=== PATIENT | male | born 1945 | race African-American/Black ===

== ENCOUNTER 2018-04-05 03:49 | Inpatient (IN) | payer MEDICARE, OTHER ==
[~2018-04-05] VITALS: Ht 182.9 cm; Wt 90.3 kg
[~2018-04-05 03:49] MED LIST: GLIPIZIDE; METOPROLOL; PLAVIX; THIAMINE
[2018-04-05] MEDS ORDERED: MORPHINE SULFATE 4 MG/ML CPJ (NOT FOR IM USE) IV ONE (05:30)
[2018-04-05 05:36] LABS: BASOPHILS % 0.6 % (0.0-2.0); EOSINOPHILS % 0.1 % (0.0-5.0); HEMATOCRIT. 48.5 % (42.0-52.0); HEMOGLOBIN. 15.6 g/dL (14.0-18.0); MEAN CORPUSCULAR HEMOGLOBIN 30.4 pg (28.0-32.0); MEAN CORPUSCULAR VOLUME 94.1 fL (80.0-94.0); MEAN PLATELET VOLUME 9.2 fl (7.4-10.4); MONOCYTES % 10.8 % (2.0-8.0); NEUTROPHILS % 74.5 % (40.0-76.0); PLATELET 284 x1000/uL (130-400); RED BLOOD CELL COUNT 5.15 mill/uL (4.7-6.1); RED CELL DISTRIBUTION WIDTH 14.4 % (11.6-14.6)
[2018-04-05 05:41] LABS: CLARITY URINE CLEAR (CLEAR); COLOR URINE DARK YELLOW (YELLOW); KETONES URINE TRACE (NEGATIVE); LEUKOCYTE ESTERASE URINE NEGATIVE (NEGATIVE); NITRITE URINE NEGATIVE (NEGATIVE); OCCULT BLOOD URINE 2+ (NEGATIVE); PROTEIN URINE 4+ (NEGATIVE); SPECIFIC GRAVITY URINE 1.022 (1.005-1.030); UROBILINOGEN URINE 0.2 E.U./dL (0.2-1.0)
[2018-04-05 05:49] LABS: CHLORIDE 104 mEq/L (98-107)
[2018-04-05 05:51] LABS: INR 1.1; PROTHROMBIN TIME 11.3 sec (9.1-11.1)
[2018-04-05] MEDS ORDERED: KETOROLAC 15MG/ML VIAL IV ONE (08:15)
[2018-04-05] MEDS ORDERED: AMLODIPINE 5MG TABLET PO ONE (08:15)
[2018-04-05] MEDS ORDERED: FUROSEMIDE 20MG/2ML VIAL IVP ONE (08:45)
[2018-04-05] MEDS ORDERED: ASPIRIN 325MG TABLET PO ONE (08:45)
[2018-04-05] MEDS ORDERED: FLUT1DIS3 INH (10:18)
[2018-04-05] MEDS ORDERED: ALBU18HF2 IH (10:18)
[2018-04-05] MEDS ORDERED: MAGN1TAB PO (10:18)
[2018-04-05] MEDS ORDERED: ONDANSETRON HCL 4MG/2ML INJ IV PRN (10:30)
[2018-04-05] MEDS ORDERED: IPRATROPIUM/ALBUTEROL 0.5-3(2.5)MG/3ML NEB INH PRN (10:30)
[2018-04-05] MEDS ORDERED: ACETAMINOPHEN 325MG TABLET PO PRN (10:30)
[2018-04-05] MEDS ORDERED: MAGNESIUM/ALUMINUM HYDROXIDE/SIMETHICONE 30ML UDC PO PRN (10:30)
[2018-04-05] MEDS ORDERED: HYDRALAZINE 20MG/ML VIAL IV PRN (10:30)
[2018-04-05] MEDS ORDERED: CLONIDINE 0.1MG TABLET PO PRN (10:30)
[2018-04-05 10:33] VITALS: BP 168/115
[2018-04-05] MEDS ORDERED: CLONIDINE 0.2MG TABLET PO PRN (10:48)
[2018-04-05] MEDS: FAMOTIDINE 20MG TABLET PO SCH (11:21)
[2018-04-05] MEDS: FUROSEMIDE 40MG/4ML VIAL IVP SCH (11:21)
[2018-04-05] MEDS: LOSARTAN POTASSIUM 50 MG TABLET PO SCH ×2 (11:21→20:50)
[2018-04-05] MEDS: MORPHINE SULFATE 4 MG/ML CPJ (NOT FOR IM USE) IV PRN ×2 (11:25→18:25)
[2018-04-05 12:00] VITALS: BP 158/74
[2018-04-05] MEDS: SODIUM CHLORIDE 0.9% INJ 3ML FLUSH IVF SCH ×2 (14:22→20:51)
[2018-04-05 16:00] VITALS: BP 168/113
[2018-04-05] MEDS: CARVEDILOL 12.5MG TABLET PO SCH (20:51)
[2018-04-05] MEDS ORDERED: FAMOTIDINE 20MG TABLET PO SCH (21:00)
[2018-04-05] MEDS ORDERED: DEXTROSE 50% WATER 50ML SYRINGE IV PRN (23:00)
[2018-04-06] VITALS: BP 155/99
[2018-04-06] MEDS: MORPHINE SULFATE 4 MG/ML CPJ (NOT FOR IM USE) IV PRN (00:03)
[2018-04-06] MEDS ORDERED: GLIP10TA10 MT (00:22)
[2018-04-06] MEDS ORDERED: CLOP75TA33 MT (00:22)
[2018-04-06] MEDS ORDERED: [UNRECOGNIZED DRUG - CODE] MC (00:22)
[2018-04-06] MEDS ORDERED: ASPI-1158 MT (00:22)
[2018-04-06] MEDS ORDERED: ATOR-2 MT (00:22)
[2018-04-06] MEDS ORDERED: CHOL100044 MT (00:22)
[2018-04-06] MEDS ORDERED: FURO40TA5 MT (00:22)
[2018-04-06] MEDS ORDERED: CARV25TA47 MT (00:22)
[2018-04-06] MEDS ORDERED: SPIR25TA6 MT (00:22)
[2018-04-06] MEDS ORDERED: MAGN400C MT (00:22)
[2018-04-06] MEDS ORDERED: LISI-604 MT (00:22)
[2018-04-06] MEDS ORDERED: ACET-2853 MT (00:22)
[2018-04-06] MEDS ORDERED: HYDR-459 MT (00:22)
[2018-04-06] MEDS ORDERED: MULT-1146 MT (00:22)
[2018-04-06 04:00] VITALS: BP 139/76
[2018-04-06] MEDS: INSULIN LISPRO 100 UNITS/ML SUBCUT SCH ×4 (05:37→21:00)
[2018-04-06] MEDS: BLOOD SUGAR DIAGNOSTIC STRIP TEST SCH ×4 (05:37→21:00)
[2018-04-06] MEDS: SODIUM CHLORIDE 0.9% INJ 3ML FLUSH IVF SCH ×3 (05:37→22:34)
[2018-04-06 06:32] LABS: BASOPHILS % 0.4 % (0.0-2.0); EOSINOPHILS % 0.2 % (0.0-5.0); HEMATOCRIT. 46.9 % (42.0-52.0); HEMOGLOBIN. 15.3 g/dL (14.0-18.0); LYMPHOCYTES % 8.7 % (20.0-50.0); MEAN CORPUSCULAR HEMOGLOBIN 30.6 pg (28.0-32.0); MEAN CORPUSCULAR VOLUME 93.9 fL (80.0-94.0); MEAN PLATELET VOLUME 8.8 fl (7.4-10.4); MONOCYTES % 13.6 % (2.0-8.0); NEUTROPHILS % 77.1 % (40.0-76.0); PLATELET 222 x1000/uL (130-400); RED CELL DISTRIBUTION WIDTH 14.1 % (11.6-14.6)
[2018-04-06 08:21] VITALS: BP 139/86
[2018-04-06] MEDS: FUROSEMIDE 40MG/4ML VIAL IVP SCH (08:52)
[2018-04-06] MEDS: LOSARTAN POTASSIUM 50 MG TABLET PO SCH ×2 (08:53→20:35)
[2018-04-06] MEDS: CARVEDILOL 12.5MG TABLET PO SCH ×2 (08:53→20:35)
[2018-04-06] MEDS: ASPIRIN 81MG EC TABLET PO SCH (08:54)
[2018-04-06] MEDS: FAMOTIDINE 20MG TABLET PO SCH (08:54)
[2018-04-06] MEDS: CLOPIDOGREL 75MG TABLET PO SCH (08:54)
[2018-04-06] MEDS: LISINOPRIL 20MG TABLET PO SCH (09:03)
[2018-04-06] MEDS ORDERED: PNEUMOCOCCAL 23-VAL P-SAC VAC 0.5 ML IM ONE (10:00)
[2018-04-06] MEDS ORDERED: INFLUENZA VIRUS VACCINE(AFLURIA) 0.5ML SYR IM ONE (10:00)
[2018-04-06 12:00] VITALS: BP 136/84
[2018-04-06 16:00] VITALS: BP 124/75
[2018-04-06 20:00] VITALS: BP 108/65
[2018-04-06] MEDS ORDERED: ATORVASTATIN CALCIUM 40MG TABLET PO SCH (21:00)
[2018-04-07] VITALS: BP 108/64
[2018-04-07 04:00] VITALS: BP 106/57
[2018-04-07] MEDS: SODIUM CHLORIDE 0.9% INJ 3ML FLUSH IVF SCH (06:10)
[2018-04-07] MEDS: BLOOD SUGAR DIAGNOSTIC STRIP TEST SCH ×2 (06:10→11:41)
[2018-04-07] MEDS: INSULIN LISPRO 100 UNITS/ML SUBCUT SCH ×2 (06:10→11:41)
[2018-04-07 07:53] VITALS: BP 116/79
[2018-04-07] MEDS: CLOPIDOGREL 75MG TABLET PO SCH (08:22)
[2018-04-07] MEDS: FAMOTIDINE 20MG TABLET PO SCH (08:22)
[2018-04-07] MEDS: LISINOPRIL 20MG TABLET PO SCH (08:22)
[2018-04-07] MEDS: LOSARTAN POTASSIUM 50 MG TABLET PO SCH (08:22)
[2018-04-07] MEDS: FUROSEMIDE 40MG/4ML VIAL IVP SCH (08:22)
[2018-04-07] MEDS: ASPIRIN 81MG EC TABLET PO SCH (08:22)
[2018-04-07] MEDS: CARVEDILOL 12.5MG TABLET PO SCH (08:23)
[2018-04-07 12:00] VITALS: BP 100/56
[2018-04-07 16:00] VITALS: BP 99/59
[2018-04-07 16:22] VITALS: BP 99/59
== END 2018-04-07 18:10 | disposition home or self-care (01) | DRG 562 ==
LOC: ER 03:49 → EDBD 03:49 → ENRESERV 07:06 → 8WST 08:38 → EDBEDREQTM 08:42 → EDBEDREQ 08:42
PROVIDERS: ADMIT Internal Medicine; ATTEND Internal Medicine
DX: S39.011A Strain of muscle, fascia and tendon of abdomen, initial encounter (principal); E43 Unspecified severe protein-calorie malnutrition; I13.0 Hypertensive heart and chronic kidney disease with heart failure and stage 1 through stage 4 chronic kidney disease, or unspecified chronic kidney disease; I50.22 Chronic systolic (congestive) heart failure; J44.9 Chronic obstructive pulmonary disease, unspecified; N18.9 Chronic kidney disease, unspecified; E78.00 Pure hypercholesterolemia, unspecified; E11.22 Type 2 diabetes mellitus with diabetic chronic kidney disease; E78.5 Hyperlipidemia, unspecified; F10.10 Alcohol abuse, uncomplicated; X58.XXXA Exposure to other specified factors, initial encounter; I25.10 Atherosclerotic heart disease of native coronary artery without angina pectoris; Z82.49 Family history of ischemic heart disease and other diseases of the circulatory system; Z83.3 Family history of diabetes mellitus; Z80.9 Family history of malignant neoplasm, unspecified; Z85.818 Personal history of malignant neoplasm of other sites of lip, oral cavity, and pharynx; Z95.5 Presence of coronary angioplasty implant and graft; Z87.891 Personal history of nicotine dependence; Z79.82 Long term (current) use of aspirin; Z79.899 Other long term (current) drug therapy; Y93.89 Activity, other specified; Y92.89 Other specified places as the place of occurrence of the external cause; Y99.8 Other external cause status; Z68.27 Body mass index [BMI] 27.0-27.9, adult
CPT/HCPCS: 36415; 71045; 74176; 80048; 82962; 83036; 83605; 83735; 84484; 90686; 90732; 93005; 93306; 93970; 96374; 96375; 99285; J0360; J1815; J1885; J1940; J2270

== ENCOUNTER 2023-08-12 12:15 | Inpatient (IN) | payer MEDICARE, OTHER ==
[~2023-08-12] VITALS: Ht 175.3 cm; Wt 73.3 kg
[~2023-08-12 12:15] MED LIST changes: +ACET-3163 MT; +ALBU18HF2 IH; +AMLO-337 MT; +ASPI-1406 MT; +CARV25TA47 MT; +CHOL100044 MT; +CLOP75TA33 MT; +FLUT1DIS3 INH; +FURO40TA5 MT; +GLIP10TA10 MT; -GLIPIZIDE; +HYDR-459 MT; +MAGN1TAB PO; +MAGN400C MT; -METOPROLOL; +MULT-1146 MT; -PLAVIX; +SPIR25TA6 MT; -THIAMINE; +[UNRECOGNIZED DRUG - CODE] MC
[2023-08-12] MEDS ORDERED: AMLODIPINE 10MG TABLET PO ONE (12:45)
[2023-08-12 13:39] LABS: HEMATOCRIT. 41.7 % (42.0-52.0); HEMOGLOBIN. 13.3 g/dL (14.0-18.0); MEAN CORPUSCULAR HEMOGLOBIN 31.3 pg (28.0-32.0); MEAN PLATELET VOLUME 8.6 fl (7.4-10.4); PLATELET 177 x1000/uL (130-400); RED BLOOD CELL COUNT 4.26 mill/uL (4.7-6.1)
[2023-08-12 13:40] LABS: DIFFERENTIAL COMMENT 1
[2023-08-12 13:53] LABS: INR 1.4; PARTIAL THROMBOPLASTIN TIME 28.9 sec (23.4-31.0); PROTHROMBIN TIME 15.4 sec (9.6-11.0)
[2023-08-12 14:00] LABS: ALANINE AMINOTRANSFERASE 126 IU/L (10-49); ALBUMIN 3.2 g/dL (3.2-4.8); ASPARTATE AMINOTRANSFERASE 290 IU/L (<34); BILIRUBIN TOTAL 1.5 mg/dL (0.1-1.0); CALCIUM 8.7 mg/dL (8.7-10.4); CARBON DIOXIDE 17 mEq/L (21-32); CHLORIDE 109 mEq/L (98-107); GLUCOSE 79 mg/dL (70-105); POTASSIUM 4.4 mEq/L (3.5-5.1); PROTEIN TOTAL 6.8 g/dL (6.0-8.3); SODIUM 138 mEq/L (136-145); TROPONIN I HIGH SENSITIVITY 42 ng/L (3.0-53); UREA NITROGEN BLOOD 52 mg/dL (9-23)
[2023-08-12 14:03] LABS: CREATININE 4.4 mg/dL (0.6-1.3)
[2023-08-12] MEDS: FUROSEMIDE 40MG/4ML VIAL IV ONE (14:03)
[2023-08-12] MEDS: ASPIRIN 81MG TABLET PO ONE (14:03)
[2023-08-12 14:06] LABS: PLATELET ESTIMATE NORMAL
[2023-08-12] MEDS: NITROGLYCERIN OINT 1GM/INCH UDPKT TD ONE (14:09)
[2023-08-12] MEDS: AMLODIPINE 5MG TABLET PO NR (14:09)
[2023-08-12] MEDS ORDERED: ONDANSETRON HCL 4MG/2ML INJ IV PRN (18:00)
[2023-08-12] MEDS: FUROSEMIDE 40MG/4ML VIAL IVP SCH (20:23)
[2023-08-12] MEDS: ENOXAPARIN 30MG/0.3ML SYR SUBCUT SCH (20:25)
[2023-08-12 20:28] VITALS: PULSE 80; RESP 20; O2SAT 98
[2023-08-12] MEDS: IPRATROPIUM/ALBUTEROL 0.5-3(2.5)MG/3ML NEB HHN PRN (20:28)
[2023-08-12] MEDS: FAMOTIDINE 20MG TABLET PO SCH (21:27)
[2023-08-12] MEDS: METOPROLOL TARTRATE 25MG TABLET PO SCH (21:27)
[2023-08-12 21:36] LABS: LACTIC ACID 3.2 mmol/L (0.4-2.0)
[2023-08-12 21:37] LABS: PHOSPHORUS 4.5 mg/dL (2.5-4.9)
[2023-08-12] MEDS ORDERED: INFLUENZA VACCINE 05/PF 0.5 ML SYRINGE IM ONE (23:00)
[2023-08-13] VITALS (9 sets, daily range): BP systolic 92–148; BP diastolic 60–82; PULSE 63–98; RESP 18–21; TEMP 96.9–98.7
[2023-08-13] MEDS: ZOLPIDEM TARTRATE 5MG TABLET PO NR (00:17)
[2023-08-13 01:58] LABS: CREATINE KINASE MB FRACTION 5.6 ng/mL (0.5-3.6)
[2023-08-13 06:56] LABS: HEMATOCRIT. 39.6 % (42.0-52.0); HEMOGLOBIN. 12.8 g/dL (14.0-18.0); MEAN CORPUSCULAR HEMOGLOBIN 31.5 pg (28.0-32.0); MEAN CORPUSCULAR HGB CONC 32.4 g/dL (31.0-37.0); MEAN PLATELET VOLUME 8.4 fl (7.4-10.4); PLATELET 170 x1000/uL (130-400); RED BLOOD CELL COUNT 4.08 mill/uL (4.7-6.1); RED CELL DISTRIBUTION WIDTH 16.8 % (11.6-14.6); WHITE BLOOD COUNT 5.2 x1000/uL (4.5-11.0)
[2023-08-13 07:04] LABS: ALANINE AMINOTRANSFERASE 134 IU/L (10-49); ALBUMIN 3.2 g/dL (3.2-4.8); ASPARTATE AMINOTRANSFERASE 231 IU/L (<34); BILIRUBIN TOTAL 0.9 mg/dL (0.1-1.0); CALCIUM 8.4 mg/dL (8.7-10.4); CARBON DIOXIDE 19 mEq/L (21-32); CHLORIDE 107 mEq/L (98-107); CHOLESTEROL 184 mg/dL (<200); CREATININE 4.5 mg/dL (0.6-1.3); GLUCOSE 148 mg/dL (70-105); HDL CHOLESTEROL 52 mg/dL (>55); LDL CHOLESTEROL 103 mg/dL (5-100); POTASSIUM 4.5 mEq/L (3.5-5.1); PROTEIN TOTAL 6.7 g/dL (6.0-8.3); SODIUM 139 mEq/L (136-145); T4 FREE 0.95 ng/dL (0.89-1.76); THYROID STIMULATING HORMONE 10.22 uIU/mL (0.55-4.78); TRIGLYCERIDE 110 mg/dL (0-150); UREA NITROGEN BLOOD 56 mg/dL (9-23)
[2023-08-13 07:28] LABS: DIFFERENTIAL COMMENT 1
[2023-08-13 07:30] LABS: CREATINE KINASE MB FRACTION 5.2 ng/mL (0.5-3.6)
[2023-08-13] MEDS: CHOLECALCIFEROL (D3) 1000 UNIT TABLET PO SCH (08:56)
[2023-08-13] MEDS: ASPIRIN 81MG TABLET PO SCH (08:56)
[2023-08-13] MEDS: AMLODIPINE 5MG TABLET PO SCH (08:57)
[2023-08-13 15:09] LABS: CLARITY URINE CLOUDY (CLEAR); COLOR URINE DARK YELLOW (YELLOW); GLUCOSE URINE NEGATIVE (NEGATIVE); KETONES URINE NEGATIVE (NEGATIVE); LEUKOCYTE ESTERASE URINE TRACE (NEGATIVE); NITRITE URINE NEGATIVE (NEGATIVE); OCCULT BLOOD URINE NEGATIVE (NEGATIVE); PROTEIN URINE 3+ (NEGATIVE); SPECIFIC GRAVITY URINE 1.016 (1.005-1.030)
[2023-08-13 15:38] LABS: BACTERIA URINE 2+; SQUAMOUS EPITHELIAL CELL URINE FEW /lpf (RARE/1+)
[2023-08-13 15:39] LABS: RBC URINE NONE SEEN /hpf (0-2); WBC URINE 0-2 /hpf (0-2)
[2023-08-13 22:36] LABS: PLATELET ESTIMATE NORMAL
[2023-08-13 22:37] LABS: ANISOCYTOSIS 1+
[2023-08-14] VITALS (7 sets, daily range): BP systolic 101–136; BP diastolic 63–84; PULSE 60–68; RESP 17–20; TEMP 96.1–98.7
[2023-08-14] MEDS: ACETAMINOPHEN 325MG TABLET PO PRN (00:18)
[2023-08-14 07:05] LABS: HEMATOCRIT 39.4 % (42.0-52.0); HEMOGLOBIN 12.6 g/dL (14.0-18.0); MEAN CORPUSCULAR HEMOGLOBIN 31.2 pg (28.0-32.0); MEAN CORPUSCULAR VOLUME 97.4 fL (80.0-94.0); PLATELET 165 x1000/uL (130-400); RED BLOOD CELL COUNT 4.04 mill/uL (4.7-6.1); RED CELL DISTRIBUTION WIDTH 16.7 % (11.6-14.6); WHITE BLOOD COUNT 6.1 x1000/uL (4.5-11.0)
[2023-08-14 08:15] LABS: LACTIC ACID 3.4 mmol/L (0.4-2.0)
[2023-08-14 08:45] LABS: CALCIUM 8.4 mg/dL (8.7-10.4); CARBON DIOXIDE 16 mEq/L (21-32); CHLORIDE 108 mEq/L (98-107); CREATININE 4.8 mg/dL (0.6-1.3); GLUCOSE 101 mg/dL (70-105); PHOSPHORUS 5.5 mg/dL (2.5-4.9); POTASSIUM 5.1 mEq/L (3.5-5.1); SODIUM 138 mEq/L (136-145); UREA NITROGEN BLOOD 61 mg/dL (9-23)
[2023-08-14] MEDS ORDERED: LACTATED RINGERS 1,000 ML IV SCH (11:00)
[2023-08-14] MEDS: SEVELAMER CARBONATE 800 MG TABLET PO SCH (13:14)
[2023-08-14] MEDS: LEVOTHYROXINE SODIUM 25MCG TABLET PO SCH (13:14)
[2023-08-14] MEDS: CEFTRIAXONE 1GM/50ML 50 ML IV SCH (18:19)
[2023-08-15 04:00] VITALS: BP 128/70; PULSE 66; RESP 18; TEMP 97.6
[2023-08-15 07:02] LABS: HEMATOCRIT 38.4 % (42.0-52.0); HEMOGLOBIN 12.5 g/dL (14.0-18.0); MEAN CORPUSCULAR HEMOGLOBIN 31.5 pg (28.0-32.0); MEAN CORPUSCULAR HGB CONC 32.4 g/dL (31.0-37.0); MEAN CORPUSCULAR VOLUME 97.1 fL (80.0-94.0); PLATELET 167 x1000/uL (130-400); RED BLOOD CELL COUNT 3.96 mill/uL (4.7-6.1); RED CELL DISTRIBUTION WIDTH 16.6 % (11.6-14.6)
[2023-08-15 07:06] LABS: LACTIC ACID 2.7 mmol/L (0.4-2.0)
[2023-08-15 07:08] LABS: CALCIUM 8.6 mg/dL (8.7-10.4); CARBON DIOXIDE 17 mEq/L (21-32); CHLORIDE 108 mEq/L (98-107); CREATININE 4.9 mg/dL (0.6-1.3); GLUCOSE 85 mg/dL (70-105); PHOSPHORUS 4.8 mg/dL (2.5-4.9); POTASSIUM 4.8 mEq/L (3.5-5.1); SODIUM 138 mEq/L (136-145); UREA NITROGEN BLOOD 63 mg/dL (9-23)
[2023-08-15 08:00] VITALS: BP 129/86; PULSE 67; RESP 18; TEMP 97.1
[2023-08-15 12:00] VITALS: BP 120/86; PULSE 62; RESP 16; TEMP 97.6
[2023-08-15] MEDS ORDERED: LACTATED RINGERS 1,000 ML IV SCH (13:15)
[2023-08-15 16:00] VITALS: BP 119/66; PULSE 58; RESP 20; TEMP 98.7
[2023-08-15 20:00] VITALS: BP 118/65; PULSE 57; RESP 18; TEMP 95.7
[2023-08-15] MEDS: CARVEDILOL 3.125 MG TABLET PO SCH (21:00)
[2023-08-15] MEDS: SODIUM CHLORIDE 0.9% 1,000 ML IV SCH (21:34)
[2023-08-16] VITALS: BP 101/70; PULSE 64; RESP 20; TEMP 96.4
[2023-08-16 04:00] VITALS: BP 90/63; PULSE 64; RESP 19; TEMP 97.5
[2023-08-16 06:13] LABS: LACTIC ACID 2.7 mmol/L (0.4-2.0)
[2023-08-16 06:14] LABS: HEMOGLOBIN. 9.7 g/dL (14.0-18.0); MEAN CORPUSCULAR HEMOGLOBIN 31.2 pg (28.0-32.0); MEAN CORPUSCULAR HGB CONC 32.2 g/dL (31.0-37.0); MEAN CORPUSCULAR VOLUME 96.9 fL (80.0-94.0); MEAN PLATELET VOLUME 8.6 fl (7.4-10.4); PLATELET 138 x1000/uL (130-400); RED CELL DISTRIBUTION WIDTH 16.5 % (11.6-14.6); WHITE BLOOD COUNT 4.9 x1000/uL (4.5-11.0)
[2023-08-16 06:26] LABS: CALCIUM 6.5 mg/dL (8.7-10.4); CARBON DIOXIDE 12 mEq/L (21-32); CHLORIDE 116 mEq/L (98-107); CREATININE 3.8 mg/dL (0.6-1.3); GLUCOSE 89 mg/dL (70-105); PHOSPHORUS 3.6 mg/dL (2.5-4.9); POTASSIUM 3.9 mEq/L (3.5-5.1); SODIUM 142 mEq/L (136-145); UREA NITROGEN BLOOD 49 mg/dL (9-23); URIC ACID 9.9 mg/dL (3.7-9.2)
[2023-08-16 06:32] LABS: DIFFERENTIAL COMMENT 1
[2023-08-16 08:00] VITALS: BP 150/76; PULSE 58; RESP 18; TEMP 97.5
[2023-08-16] MEDS: SODIUM BICARBONATE 650 MG TABLET PO SCH (08:31)
[2023-08-16] MEDS: MAGNESIUM GLUCONATE 500MG TABLET PO SCH (09:53)
[2023-08-16 12:00] VITALS: BP 110/54; PULSE 59; RESP 18; TEMP 97
[2023-08-16 13:25] LABS: ANISOCYTOSIS 1+; PLATELET ESTIMATE NORMAL
[2023-08-16 16:00] VITALS: BP 135/78; PULSE 60; RESP 20; TEMP 96.9
[2023-08-16 20:00] VITALS: BP 135/75; PULSE 61; RESP 19; TEMP 97
[2023-08-17] VITALS: BP 115/74; PULSE 63; RESP 18; TEMP 96.7
[2023-08-17 04:00] VITALS: BP 104/53; PULSE 58; RESP 19; TEMP 95.2
[2023-08-17 06:58] LABS: HEMATOCRIT 33.2 % (42.0-52.0); HEMOGLOBIN 10.9 g/dL (14.0-18.0); MEAN CORPUSCULAR HGB CONC 32.8 g/dL (31.0-37.0); MEAN CORPUSCULAR VOLUME 94.5 fL (80.0-94.0); PLATELET 143 x1000/uL (130-400); RED BLOOD CELL COUNT 3.51 mill/uL (4.7-6.1); RED CELL DISTRIBUTION WIDTH 16.4 % (11.6-14.6); WHITE BLOOD COUNT 4.8 x1000/uL (4.5-11.0)
[2023-08-17 07:29] LABS: CALCIUM 8.4 mg/dL (8.7-10.4); CARBON DIOXIDE 16 mEq/L (21-32); CHLORIDE 108 mEq/L (98-107); GLUCOSE 96 mg/dL (70-105); PHOSPHORUS 4.6 mg/dL (2.5-4.9); POTASSIUM 5.5 mEq/L (3.5-5.1); SODIUM 137 mEq/L (136-145); UREA NITROGEN BLOOD 71 mg/dL (9-23)
[2023-08-17 07:30] LABS: CREATININE 5.1 mg/dL (0.6-1.3)
[2023-08-17 08:00] VITALS: BP 114/60; PULSE 57; RESP 20; TEMP 97.2
[2023-08-17 12:00] VITALS: BP 117/66; PULSE 57; RESP 20; TEMP 97.6
[2023-08-17] MEDS: SODIUM POLYSTYRENE SULFONATE 15 G/60 ML BOT PO NR (13:25)
[2023-08-17 16:00] VITALS: BP 114/57; PULSE 58; RESP 20; TEMP 97
[2023-08-17 20:00] VITALS: BP 120/73; PULSE 61; RESP 20; TEMP 95.6
[2023-08-18] VITALS (7 sets, daily range): BP systolic 118–131; BP diastolic 66–80; PULSE 60–108; RESP 16–20; TEMP 96.4–98.2
[2023-08-18 05:49] LABS: HEMATOCRIT 33.3 % (42.0-52.0); MEAN CORPUSCULAR HEMOGLOBIN 31.2 pg (28.0-32.0); MEAN CORPUSCULAR VOLUME 94.7 fL (80.0-94.0); PLATELET 162 x1000/uL (130-400); RED BLOOD CELL COUNT 3.52 mill/uL (4.7-6.1); RED CELL DISTRIBUTION WIDTH 16.1 % (11.6-14.6); WHITE BLOOD COUNT 4.5 x1000/uL (4.5-11.0)
[2023-08-18 06:09] LABS: CALCIUM 8.6 mg/dL (8.7-10.4); CARBON DIOXIDE 18 mEq/L (21-32); CHLORIDE 108 mEq/L (98-107); GLUCOSE 87 mg/dL (70-105); PHOSPHORUS 4.5 mg/dL (2.5-4.9); POTASSIUM 4.4 mEq/L (3.5-5.1); SODIUM 140 mEq/L (136-145); UREA NITROGEN BLOOD 78 mg/dL (9-23)
[2023-08-18 06:16] LABS: CREATININE 5.2 mg/dL (0.6-1.3)
[2023-08-18] MEDS: FUROSEMIDE 40MG/4ML VIAL IVP NR (14:01)
[2023-08-19] VITALS (15 sets, daily range): BP systolic 114–143; BP diastolic 59–91; PULSE 57–65; RESP 12–23; TEMP 96–97.2
[2023-08-19 06:44] LABS: HEMATOCRIT 34.1 % (42.0-52.0); HEMOGLOBIN 11.1 g/dL (14.0-18.0); MEAN CORPUSCULAR HGB CONC 32.7 g/dL (31.0-37.0); MEAN CORPUSCULAR VOLUME 94.8 fL (80.0-94.0); PLATELET 166 x1000/uL (130-400); RED CELL DISTRIBUTION WIDTH 16.2 % (11.6-14.6); WHITE BLOOD COUNT 4.4 x1000/uL (4.5-11.0)
[2023-08-19 07:20] LABS: CALCIUM 8.7 mg/dL (8.7-10.4); CARBON DIOXIDE 19 mEq/L (21-32); CHLORIDE 99 mEq/L (98-107); GLUCOSE 87 mg/dL (70-105); PHOSPHORUS 4.4 mg/dL (2.5-4.9); POTASSIUM 3.8 mEq/L (3.5-5.1); UREA NITROGEN BLOOD 75 mg/dL (9-23)
[2023-08-19 07:21] LABS: SODIUM 124 mEq/L (136-145)
[2023-08-19] MEDS: FUROSEMIDE 40MG/4ML VIAL IVP SCH (09:02)
[2023-08-19] MEDS ORDERED: FENTANYL CITRATE/PF 50MCG/ML 2ML VIAL IV ONE (12:45)
[2023-08-19] MEDS ORDERED: LIDOCAINE HCL 1% 10 MG/ML 10ML VIAL ONE (12:51)
[2023-08-19] MEDS ORDERED: LIDOCAINE HCL/EPINEPHRINE 1%-EPI 1:100,000 20 ML VIAL ONE (12:51)
[2023-08-19 12:54] LABS: HEPATITIS A AB IGM NEGATIVE (Negative); HEPATITIS B CORE AB IGM NEGATIVE (Negative); HEPATITIS B SURFACE ANTIGEN NEGATIVE (Negative); HEPATITIS C AB NON REACTIVE (Neg) (Negative)
[2023-08-19] MEDS ORDERED: CEFAZOLIN 1000MG PREMIX 50 ML IV NR (13:00)
[2023-08-19 16:58] LABS: INR 1.2
[2023-08-20] VITALS (16 sets, daily range): BP systolic 114–151; BP diastolic 51–89; PULSE 56–78; RESP 15–20; TEMP 95.7–98.8
[2023-08-20 06:29] LABS: HEMATOCRIT 32.7 % (42.0-52.0); HEMOGLOBIN 10.4 g/dL (14.0-18.0); MEAN CORPUSCULAR HEMOGLOBIN 30.6 pg (28.0-32.0); MEAN CORPUSCULAR HGB CONC 31.9 g/dL (31.0-37.0); MEAN CORPUSCULAR VOLUME 96.1 fL (80.0-94.0); PLATELET 158 x1000/uL (130-400); RED CELL DISTRIBUTION WIDTH 16.3 % (11.6-14.6)
[2023-08-20 07:07] LABS: CALCIUM 8.4 mg/dL (8.7-10.4); CARBON DIOXIDE 18 mEq/L (21-32); CHLORIDE 108 mEq/L (98-107); GLUCOSE 91 mg/dL (70-105); PHOSPHORUS 4.7 mg/dL (2.5-4.9); POTASSIUM 4.6 mEq/L (3.5-5.1); SODIUM 138 mEq/L (136-145); UREA NITROGEN BLOOD 65 mg/dL (9-23)
[2023-08-20 07:09] LABS: CREATININE 5.1 mg/dL (0.6-1.3)
[2023-08-21] VITALS (7 sets, daily range): BP systolic 125–148; BP diastolic 62–81; PULSE 56–68; RESP 16–20; TEMP 96.6–98.6; O2SAT 99
[2023-08-21 07:56] LABS: HEMOGLOBIN 10.3 g/dL (14.0-18.0); MEAN CORPUSCULAR HEMOGLOBIN 30.6 pg (28.0-32.0); MEAN CORPUSCULAR HGB CONC 32.4 g/dL (31.0-37.0); MEAN CORPUSCULAR VOLUME 94.4 fL (80.0-94.0); PLATELET 150 x1000/uL (130-400); RED BLOOD CELL COUNT 3.39 mill/uL (4.7-6.1); RED CELL DISTRIBUTION WIDTH 15.9 % (11.6-14.6); WHITE BLOOD COUNT 4.5 x1000/uL (4.5-11.0)
[2023-08-21 08:22] LABS: CARBON DIOXIDE 23 mEq/L (21-32); CHLORIDE 106 mEq/L (98-107); CREATININE 4.3 mg/dL (0.6-1.3); GLUCOSE 97 mg/dL (70-105); PHOSPHORUS 4.2 mg/dL (2.5-4.9); SODIUM 141 mEq/L (136-145); UREA NITROGEN BLOOD 60 mg/dL (9-23)
[2023-08-21] MEDS: CARVEDILOL 6.25 MG TABLET PO SCH (21:24)
[2023-08-21] MEDS: IPRATROPIUM/ALBUTEROL 0.5-3(2.5)MG/3ML NEB HHN PRN (23:44)
[2023-08-22] VITALS (7 sets, daily range): BP systolic 100–135; BP diastolic 52–76; PULSE 51–65; RESP 14–20; TEMP 97–98.3
[2023-08-22 08:41] LABS: HEMATOCRIT 32.2 % (42.0-52.0); HEMOGLOBIN 10.5 g/dL (14.0-18.0); MEAN CORPUSCULAR HEMOGLOBIN 31.1 pg (28.0-32.0); MEAN CORPUSCULAR HGB CONC 32.6 g/dL (31.0-37.0); MEAN CORPUSCULAR VOLUME 95.4 fL (80.0-94.0); PLATELET 152 x1000/uL (130-400); RED BLOOD CELL COUNT 3.38 mill/uL (4.7-6.1); RED CELL DISTRIBUTION WIDTH 16.1 % (11.6-14.6); WHITE BLOOD COUNT 4.2 x1000/uL (4.5-11.0)
[2023-08-22 09:09] LABS: CALCIUM 8.3 mg/dL (8.7-10.4); CARBON DIOXIDE 24 mEq/L (21-32); CHLORIDE 106 mEq/L (98-107); CREATININE 4.2 mg/dL (0.6-1.3); GLUCOSE 72 mg/dL (70-105); PHOSPHORUS 3.7 mg/dL (2.5-4.9); POTASSIUM 4.2 mEq/L (3.5-5.1); SODIUM 140 mEq/L (136-145); UREA NITROGEN BLOOD 64 mg/dL (9-23)
[2023-08-22] MEDS: LOSARTAN 25 MG TABLET PO SCH (09:15)
[2023-08-22 17:24] LABS: HEPATITIS A AB IGM NEGATIVE (Negative); HEPATITIS B CORE AB IGM NEGATIVE (Negative); HEPATITIS B SURFACE ANTIGEN NEGATIVE (Negative); HEPATITIS C AB NON REACTIVE (Neg) (Negative)
[2023-08-23] VITALS (7 sets, daily range): BP systolic 107–117; BP diastolic 44–67; PULSE 54–66; RESP 17–20; TEMP 97–97.8
[2023-08-24] VITALS (15 sets, daily range): BP systolic 99–141; BP diastolic 40–76; PULSE 58–70; RESP 18–20; TEMP 96.9–98.2
[2023-08-25] VITALS (7 sets, daily range): BP systolic 111–129; BP diastolic 54–82; PULSE 58–74; RESP 17–20; TEMP 97.5–98.1; O2SAT 97
[2023-08-25 09:40] LABS: HEMATOCRIT. 32.7 % (42.0-52.0); HEMOGLOBIN. 10.5 g/dL (14.0-18.0); MEAN CORPUSCULAR HEMOGLOBIN 30.5 pg (28.0-32.0); MEAN CORPUSCULAR HGB CONC 32.2 g/dL (31.0-37.0); MEAN CORPUSCULAR VOLUME 94.7 fL (80.0-94.0); MEAN PLATELET VOLUME 8.3 fl (7.4-10.4); PLATELET 135 x1000/uL (130-400); RED BLOOD CELL COUNT 3.46 mill/uL (4.7-6.1); RED CELL DISTRIBUTION WIDTH 15.8 % (11.6-14.6); WHITE BLOOD COUNT 4.2 x1000/uL (4.5-11.0)
[2023-08-25 09:42] LABS: CALCIUM 8.5 mg/dL (8.7-10.4); CARBON DIOXIDE 27 mEq/L (21-32); CHLORIDE 105 mEq/L (98-107); CREATININE 3.5 mg/dL (0.6-1.3); GLUCOSE 76 mg/dL (70-105); POTASSIUM 4.2 mEq/L (3.5-5.1); SODIUM 139 mEq/L (136-145); UREA NITROGEN BLOOD 52 mg/dL (9-23)
[2023-08-25 09:52] LABS: DIFFERENTIAL COMMENT 1
[2023-08-25 16:07] LABS: PLATELET ESTIMATE SLIGHTLY DECREASED
[2023-08-26] VITALS (15 sets, daily range): BP systolic 101–131; BP diastolic 48–76; PULSE 56–78; RESP 16–21; TEMP 97.7–98.6
[2023-08-27] VITALS (7 sets, daily range): BP systolic 112–125; BP diastolic 55–61; PULSE 52–61; RESP 17–22; TEMP 97.2–98; O2SAT 94–98
[2023-08-27] MEDS ORDERED: LOSA25TA26 PO (11:05)
[2023-08-27] MEDS ORDERED: MULT-1146 PO (11:05)
[2023-08-27] MEDS ORDERED: MAG500 PO (11:05)
[2023-08-27] MEDS ORDERED: SODI650T PO (11:05)
[2023-08-27] MEDS ORDERED: TOPUD PO (11:05)
[2023-08-27] MEDS ORDERED: CHOL-36 PO (11:05)
[2023-08-27] MEDS ORDERED: SPIR25TA6 PO (11:05)
[2023-08-27] MEDS ORDERED: ALBU18HF2 IH (11:05)
[2023-08-27] MEDS ORDERED: LEVO25TA7 PO (11:05)
[2023-08-27] MEDS ORDERED: COR6 PO (11:05)
[2023-08-27] MEDS ORDERED: CLOP75TA33 PO (11:05)
[2023-08-27] MEDS ORDERED: FLUT1DIS3 INH (11:05)
[2023-08-27] MEDS ORDERED: FAMO20TA8 PO (11:05)
[2023-08-27] MEDS ORDERED: FURO40TA5 PO (11:05)
[2023-08-27] MEDS ORDERED: SEVE800T8 PO (11:05)
[2023-08-27] MEDS ORDERED: HYDR-459 PO (11:05)
== END 2023-08-27 16:15 | disposition home or self-care (01) | DRG 291 ==
LOC: ER 12:35 → EDBEDREQ 13:18 → 7EST 14:39 → EDBEDREQTM 14:50 → EDBEDREQ 14:50
PROVIDERS: ADMIT Preventive Medicine Clinical Informatics; ATTEND Internal Medicine
PROC: 0JH63XZ Insertion of Tunneled Vascular Access Device into Chest Subcutaneous Tissue and Fascia, Percutaneous Approach (ICD-10-PCS; principal; 2023-08-19)
PROC: 02HV33Z Insertion of Infusion Device into Superior Vena Cava, Percutaneous Approach (ICD-10-PCS; 2023-08-19)
PROC: B548ZZA Ultrasonography of Superior Vena Cava, Guidance (ICD-10-PCS; 2023-08-19)
DX: I13.0 Hypertensive heart and chronic kidney disease with heart failure and stage 1 through stage 4 chronic kidney disease, or unspecified chronic kidney disease (principal); I50.43 Acute on chronic combined systolic (congestive) and diastolic (congestive) heart failure; I16.9 Hypertensive crisis, unspecified; N17.9 Acute kidney failure, unspecified; Z59.00 Homelessness unspecified; E87.20 Acidosis, unspecified; N25.81 Secondary hyperparathyroidism of renal origin; R06.03 Acute respiratory distress; E11.40 Type 2 diabetes mellitus with diabetic neuropathy, unspecified; E11.22 Type 2 diabetes mellitus with diabetic chronic kidney disease; I25.10 Atherosclerotic heart disease of native coronary artery without angina pectoris; I27.20 Pulmonary hypertension, unspecified; D50.9 Iron deficiency anemia, unspecified; D72.825 Bandemia; J44.9 Chronic obstructive pulmonary disease, unspecified; C02.9 Malignant neoplasm of tongue, unspecified; D53.9 Nutritional anemia, unspecified; R74.8 Abnormal levels of other serum enzymes; N18.9 Chronic kidney disease, unspecified; Z20.822 Contact with and (suspected) exposure to COVID-19; E78.5 Hyperlipidemia, unspecified; R79.1 Abnormal coagulation profile; K74.60 Unspecified cirrhosis of liver; F10.10 Alcohol abuse, uncomplicated; Z79.82 Long term (current) use of aspirin; Z85.810 Personal history of malignant neoplasm of tongue; Z86.73 Personal history of transient ischemic attack (TIA), and cerebral infarction without residual deficits; Z95.5 Presence of coronary angioplasty implant and graft; Z79.899 Other long term (current) drug therapy; Z91.148 Patient's other noncompliance with medication regimen for other reason
CPT/HCPCS: 36415; 36558; 71045; 76770; 76937; 77001; 80048; 80053; 80061; 81003; 82550; 82553; 83605; 83735; 83880; 83970; 84100; 84145; 84295; 84439; 84443; 84481; 84484; 84550; 85025; 85027; 86705; 86706; 86709; 87340; 87426; 90935; 93005; 93306; 94640; 97110; 97165; 97530; 97535; 99152; 99153; 99285; C1750; C1769; C1893; J0690; J0696; J1642; J1650; J1940; J3010; J3490; J7030; G0500